=== PATIENT | female | born 2000 | race Two or more races ===

== ENCOUNTER 2019-03-11 20:02 | Emergency (ER) | payer MEDICAID ==
[~2019-03-11] VITALS: Ht 157.5 cm; Wt 52.2 kg
[2019-03-11 20:15] VITALS: BP 112/71
[2019-03-11] MEDS ORDERED: ONDANSETRON ODT 4 MG TAB PO ONE (20:15)
[2019-03-11] MEDS ORDERED: ACETAMINOPHEN 500 MG TAB PO ONE (20:15)
[2019-03-11 20:49] LABS: Basophils # (auto) 0 uL; Basophils % (auto) 0.1 % (0.0-2.0); Eosinophils # (auto) 0 uL; Hemoglobin 10.8 g/dL (12.2-16.2); Lymphocytes # (auto) 0.6 uL; Mean Corpuscular Hemoglobin 26.3 pg (28.0-32.0)
[2019-03-11 20:50] LABS: Lymphocytes % (auto) 5.7 % (10.0-50.0); Mean Corpuscular Hgb Conc. 33.7 g/dL (32.0-36.0); Monocytes # (auto) 1.5 uL; Monocytes % (auto) 13.7 % (0.0-12.0); Neutrophils # (auto) 8.6 uL; Neutrophils % (auto) 80.5 % (37.0-80.0); Platelet Count (auto) 200 10^3/uL (140-450); Red Cell Distribution Width 15.8 % (11.8-14.3); White Blood Cell 10.7 10^3/uL (4.4-10.8)
[2019-03-11 21:10] LABS: Albumin 2.7 g/dL (3.4-5.0); BUN/Creatinine Ratio 11.3; Calcium 8.8 mg/dL (8.5-10.1)
[2019-03-11] MEDS ORDERED: SODIUM CHLORIDE 0.9% 1,000 ML IV ONE (21:15)
[2019-03-11 21:21] LABS: Bilirubin, Total 0.7 mg/dL (0.2-1.0); Total Protein 8.9 g/dL (6.4-8.2)
[2019-03-11 21:37] LABS: Potassium 2.8 mmol/L (3.5-5.1)
== END 2019-03-11 21:37 | disposition left against medical advice (07) ==
LOC: ER 20:05
DX: R10.31 Right lower quadrant pain (principal); R10.32 Left lower quadrant pain; R11.2 Nausea with vomiting, unspecified
CPT/HCPCS: 36415; 80053; 83690; 84702; 85025; 99283; Q0162

== ENCOUNTER 2020-06-10 10:14 | Emergency (ER) | payer MEDICAID ==
[~2020-06-10] VITALS: Ht 157.5 cm; Wt 59.0 kg
[~2020-06-10 10:14] MED LIST: FER325T PO; LEVO-28 PO; ONDA-144 PO; PANT40T PO
[2020-06-10 10:16] VITALS: BP 126/78
[2020-06-10] MEDS ORDERED: cefTRIAXone 1GM/50ML D5W 50 ML IV ONE (10:30)
[2020-06-10] MEDS ORDERED: SODIUM CHLORIDE 0.9% 1,000 ML IV ONE ×2 (10:30)
[2020-06-10] MEDS ORDERED: TETANUS-DIPTH-ACEL PERTUSSIS 0.5ML SYR Tdap IM ONE (10:30)
[2020-06-10 10:43] LABS: Basophils % (auto) 0.6 % (0.0-2.0); Eosinophils # (auto) 0.1 10 ^3/uL (0-0.8); Hemoglobin 11.6 g/dL (12.2-16.2); Lymphocytes # (auto) 1.3 10 ^3/uL (0.4-5.4); Monocytes # (auto) 0.6 10 ^3/uL (0-1.3); Neutrophils # (auto) 6.9 10 ^3/uL (1.6-8.6); Nucleated Red Blood Cells % 0.1 %
[2020-06-10 10:45] LABS: Basophils # (auto) 0.1 10 ^3/uL (0-0.2); Eosinophils % (auto) 1.3 % (0.0-7.0); Hematocrit 35.2 % (36.0-46.0); Lymphocytes % (auto) 14.3 % (10.0-50.0); Mean Corpuscular Hemoglobin 25.6 pg (28.0-32.0); Mean Corpuscular Hgb Conc. 32.9 g/dL (32.0-36.0); Monocytes % (auto) 6.4 % (0.0-12.0); Neutrophils % (auto) 77.4 % (37.0-80.0); Red Blood Cells 4.51 10^6/uL (4.0-5.20); Red Cell Distribution Width 16.1 % (11.8-14.3); White Blood Cell 8.9 10^3/uL (4.4-10.8)
[2020-06-10] MEDS ORDERED: GENTAMICIN SULFATE 80 MG in D5W 5% 100 ML IV ONE (11:00)
[2020-06-10 11:01] LABS: INR 1.03 (0.9-1.15); Partial Thromboplastin Time 26.4 sec (23.0-31.2)
[2020-06-10 11:09] LABS: Albumin 3.8 g/dL (3.4-5.0); Calcium 8.5 mg/dL (8.5-10.1); Potassium 3.3 mmol/L (3.5-5.1)
[2020-06-10 11:13] LABS: BUN/Creatinine Ratio 9.8; Bilirubin, Total 1.1 mg/dL (0.2-1.0); Total Protein 8.5 g/dL (6.4-8.2)
== END 2020-06-10 11:56 | disposition short-term general hospital (02) ==
LOC: ER 10:14
DX: S81.012A Laceration without foreign body, left knee, initial encounter (principal); Z79.899 Other long term (current) drug therapy; W18.02XA Striking against glass with subsequent fall, initial encounter; Y93.89 Activity, other specified; Y92.89 Other specified places as the place of occurrence of the external cause; Y99.8 Other external cause status
CPT/HCPCS: 36415; 73700; 80053; 85025; 85610; 85730; 90471; 90715; 96365; 99285; J0696; J1580; J7060

== ENCOUNTER 2021-03-04 05:50 | Emergency (ER) | payer MEDICAID ==
[~2021-03-04] VITALS: Ht 157.5 cm; Wt 54.4 kg
[2021-03-04] MEDS ORDERED: NALOXONE HCL 1MG/ML 2ML SYRINGE IV ONE (06:00)
[2021-03-04] MEDS ORDERED: ONDANSETRON HCL 4 MG/2 ML VIAL IV ONE (06:00)
[2021-03-04 06:53] LABS: Basophils # (auto) 0.1 10 ^3/uL (0-0.2); Eosinophils # (auto) 0.2 10 ^3/uL (0-0.8)
[2021-03-04 06:55] LABS: Basophils % (auto) 1.2 % (0.0-2.0); Eosinophils % (auto) 1.6 % (0.0-7.0); Hematocrit 31.9 % (36.0-46.0); Hemoglobin 10.8 g/dL (12.2-16.2); Lymphocytes # (auto) 4.5 10 ^3/uL (0.4-5.4); Lymphocytes % (auto) 41.9 % (10.0-50.0); Mean Corpuscular Hemoglobin 27.6 pg (28.0-32.0); Mean Corpuscular Hgb Conc. 33.8 g/dL (32.0-36.0); Mean Corpuscular Volume 81.7 fL (80.0-100.0); Monocytes # (auto) 0.7 10 ^3/uL (0-1.3); Monocytes % (auto) 6.8 % (0.0-12.0); Neutrophils # (auto) 5.2 10 ^3/uL (1.6-8.6); Neutrophils % (auto) 48.5 % (37.0-80.0); Red Cell Distribution Width 14.6 % (11.8-14.3); White Blood Cell 10.8 10^3/uL (4.4-10.8)
[2021-03-04 07:08] LABS: Albumin 3.1 g/dL (3.4-5.0); Calcium 8.3 mg/dL (8.5-10.1); Potassium 3.3 mmol/L (3.5-5.1)
[2021-03-04 07:10] LABS: BUN/Creatinine Ratio 8.9
[2021-03-04 07:14] LABS: Bilirubin, Total 0.4 mg/dL (0.2-1.0); Total Protein 6.5 g/dL (6.4-8.2)
[2021-03-04 07:25] LABS: Acetaminophen < 2.0 ug/mL (10-30); Salicylate < 1.7 mg/dL (2.8-20.0)
[2021-03-04 07:50] VITALS: BP 108/78
== END 2021-03-04 06:15 | disposition left against medical advice (07) ==
LOC: ER 05:50
DX: T50.901A Poisoning by unspecified drugs, medicaments and biological substances, accidental (unintentional), initial encounter (principal); Z90.49 Acquired absence of other specified parts of digestive tract; Z79.2 Long term (current) use of antibiotics; Z79.899 Other long term (current) drug therapy; Y92.89 Other specified places as the place of occurrence of the external cause
CPT/HCPCS: 36415; 80053; 80329; 85025; 99283; J2405

== ENCOUNTER 2021-05-23 12:13 | Emergency (ER) | payer MEDICAID ==
[~2021-05-23] VITALS: Ht 157.5 cm; Wt 56.7 kg
[2021-05-23 13:16] VITALS: BP 121/82
[2021-05-23 13:39] LABS: Urine Bacteria FEW /hpf (None Seen); Urine Blood Negative /uL (Negative); Urine Specific Gravity 1.004 (1.001-1.035); Urine WBC 52 /hpf (0 - 5)
[2021-05-23 13:52] LABS: Alcohol, Urine < 3.0 mg/dL (0-10); Amphetamine Screen, Urine POSITIVE (NEGATIVE); Barbiturate Scree,Urine NEGATIVE (NEGATIVE); Benzodiazephine Screen, Urine NEGATIVE (NEGATIVE); Cannabinoid Screen, Urine NEGATIVE (NEGATIVE); Cocaine Screen, Urine NEGATIVE (NEGATIVE); Phencyclidine Screen, Urine POSITIVE (NEGATIVE)
[2021-05-23 14:00] LABS: Opiate Scree,Urine NEGATIVE (NEGATIVE)
[2021-05-23 14:05] LABS: Basophils # (auto) 0.1 10 ^3/uL (0-0.2); Basophils % (auto) 0.5 % (0.0-2.0); Eosinophils # (auto) 0.1 10 ^3/uL (0-0.8); Eosinophils % (auto) 0.9 % (0.0-7.0); Hematocrit 34.5 % (36.0-46.0); Hemoglobin 11.4 g/dL (12.2-16.2); Lymphocytes # (auto) 2.1 10 ^3/uL (0.4-5.4); Lymphocytes % (auto) 16.6 % (10.0-50.0); Mean Corpuscular Hemoglobin 25.3 pg (28.0-32.0); Mean Corpuscular Volume 76.7 fL (80.0-100.0); Monocytes % (auto) 7.8 % (0.0-12.0); Neutrophils # (auto) 9.2 10 ^3/uL (1.6-8.6); Neutrophils % (auto) 74.2 % (37.0-80.0); Nucleated Red Blood Cells % 0.1 %; Red Cell Distribution Width 14.9 % (11.8-14.3); White Blood Cell 12.4 10^3/uL (4.4-10.8)
[2021-05-23 14:24] LABS: BUN/Creatinine Ratio 9.2; Calcium 8.1 mg/dL (8.5-10.1); Potassium 3.2 mmol/L (3.5-5.1)
[2021-05-23] MEDS ORDERED: DEXTROSE (50%) 50ML SYRG IV ONE (14:30)
[2021-05-23] MEDS ORDERED: SODIUM CHLORIDE 0.9% 1,000 ML IV ONE (14:30)
[2021-05-23] MEDS ORDERED: KETOROLAC TROMETH 30 MG/ML 1ML VIAL IV ONE (14:45)
[2021-05-23] MEDS ORDERED: POTASSIUM CHL 20 Meq TABLET PO ONE (14:45)
[2021-05-23] MEDS ORDERED: cefTRIAXone 1GM/50ML D5W 50 ML IV ONE (14:45)
[2021-05-23] MEDS ORDERED: NAPR500T31 PO (16:09)
[2021-05-23] MEDS ORDERED: CEPH-509 PO (16:09)
== END 2021-05-23 16:10 | disposition left against medical advice (07) ==
LOC: ER 12:13
DX: N39.0 Urinary tract infection, site not specified (principal); F15.10 Other stimulant abuse, uncomplicated; L03.031 Cellulitis of right toe; E16.2 Hypoglycemia, unspecified; F17.210 Nicotine dependence, cigarettes, uncomplicated; Z90.49 Acquired absence of other specified parts of digestive tract; Z79.2 Long term (current) use of antibiotics; Z79.899 Other long term (current) drug therapy
CPT/HCPCS: 36415; 80048; 80307; 81001; 81025; 82962; 85025; 96365; 96375; 99284; J0696; J1885; J7030